=== PATIENT | female | born 1985 | race Caucasian/White ===

== ENCOUNTER 2017-12-12 13:46 | Outpatient (CLI) | payer BC ==
[~2017-12-12] VITALS: Ht 172.7 cm; Wt 73.6 kg
[~2017-12-12 13:46] MED LIST: MOTRIN 600600 MG/TAB PO; PERCOCET 325 MG1 TA2 PO; PRENATAL VITAMI1 TAB PO; ZANTAC 150MG T150 MG PO
[2017-12-12 13:51] VITALS: BP 110/72; PULSE 84; TEMP 97.9
== END 2017-12-12 14:35 | disposition home or self-care (01) ==
LOC: LDR 13:46 → LDRO 13:46
DX: Z34.83 Encounter for supervision of other normal pregnancy, third trimester (principal); Z3A.38 38 weeks gestation of pregnancy
CPT/HCPCS: OP

== ENCOUNTER 2017-12-20 08:30 | Inpatient (IN) | payer BC ==
[2017-12-20] VITALS (20 sets, daily range): BP systolic 84–122; BP diastolic 50–70; PULSE 70–103; TEMP 97.2–97.7
[~2017-12-20] VITALS: Ht 172.7 cm; Wt 75.0 kg
[2017-12-20] MEDS ORDERED: ZANTAC 150MG T150 MG PO (08:47)
[2017-12-20 09:41] LABS: BASO % 0.3 % (0.0-2.0); EOS # 0.1 (0.0-0.7); EOS % 0.4 % (0-4.0); GRAN # 11.5 (1.4-6.5); GRAN % 82.8 % (42.2-75.2); HEMATOCRIT 34.8 % (37.0-47.0); HEMOGLOBIN 11.7 g/dl (12.5-16.0); LYMPH # 1.1 (1.2-3.4); LYMPH % 8.3 % (20.0-51.0); MEAN CELL VOLUME 89 fl (80.0-100.0); MEAN CORPUSCULAR HEMOGLOBIN 30 pg (27.0-31.0); MEAN CORPUSCULAR HGB CONC 34 g/dl (33.0-37.0); MEAN PLATELET VOLUME 11.1 fl (7.4-10.4); MONO # 1.1 (0.1-0.6); MONO % 7.6 % (1.7-9.3); PLATELET COUNT 155 K/mm3 (130-400); RED BLOOD COUNT 3.93 M/mm3 (4.10-5.30); REDCELL DISTRIBUTION WIDTH-CV 14.3 % (11.5-14.5)
[2017-12-20] MEDS ORDERED: MOTRIN 800800 MG/TAB PO (11:38)
[2017-12-20] MEDS ORDERED: PERCOCET 325 MG1 TA2 PO (11:38)
[2017-12-21] VITALS: BP 108/72; PULSE 89; TEMP 97.8
[2017-12-21 05:10] VITALS: BP 94/62; PULSE 86; TEMP 98.5
[2017-12-21 09:43] VITALS: BP 94/49; PULSE 94; TEMP 97.6
[2017-12-21 16:33] VITALS: BP 98/61; PULSE 72; TEMP 98.2
[2017-12-21 20:00] VITALS: BP 130/68; PULSE 70; TEMP 98
[2017-12-22 08:35] VITALS: BP 100/65; PULSE 72; TEMP 98.1
== END 2017-12-22 13:40 | disposition home or self-care (01) | DRG 775 ==
LOC: LDRO 08:30 → LDR 09:00 → OB 16:10
PROVIDERS: Obstetrics & Gynecology
PROC: 10E0XZZ Delivery of Products of Conception, External Approach (ICD-10-PCS; principal; 2017-12-20)
PROC: 0KQM0ZZ Repair Perineum Muscle, Open Approach (ICD-10-PCS; 2017-12-20)
DX: O99.013 Anemia complicating pregnancy, third trimester (principal); K21.9 Gastro-esophageal reflux disease without esophagitis; O99.820 Streptococcus B carrier state complicating pregnancy; O99.613 Diseases of the digestive system complicating pregnancy, third trimester; O70.1 Second degree perineal laceration during delivery; Z37.0 Single live birth; Z3A.39 39 weeks gestation of pregnancy
CPT/HCPCS: J2540; J2590; J7120

== ENCOUNTER 2021-05-22 13:53 | Emergency (ER) | payer SELFPAY ==
[~2021-05-22] VITALS: Ht 172.7 cm; Wt 65.9 kg
[~2021-05-22 13:53] MED LIST changes: +MOTRIN 800800 MG/TAB PO
[2021-05-22 14:27] LABS: COLLECTION METHOD CLEAN CATCH
[2021-05-22 14:43] LABS: MUCOUS Present (NOT PRESENT); PH 5 (5-8); URINE APPEARANCE Hazy (CLEAR/HAZY); URINE BACTERIA None Seen (NONE SEEN); URINE BILIRUBIN Negative (NEGATIVE); URINE BLOOD 1+ (NEGATIVE); URINE COLOR Yellow (YELLOW); URINE GLUCOSE Negative (NEGATIVE); URINE KETONE 2+ (NEGATIVE); URINE LEUKOCYTE ESTERASE Negative (NEGATIVE); URINE NITRATE Negative (NEGATIVE); URINE PROTEIN(semi-quant) 1+ (NEGATIVE); URINE RBC 0-2 /hpf (0-2); URINE UROBILINOGEN Negative (NEGATIVE)
[2021-05-22 15:30] LABS: HEMATOCRIT 40.6 % (37.0-47.0); HEMOGLOBIN 13.9 g/dl (12.5-16.0); MEAN CELL VOLUME 89 fl (80.0-100.0); MEAN CORPUSCULAR HEMOGLOBIN 30 pg (27-31); MEAN CORPUSCULAR HGB CONC 34 g/dl (33.0-37.0); PLATELET COUNT 200 K/mm3 (130-400); RED BLOOD COUNT 4.58 M/mm3 (4.10-5.30); REDCELL DISTRIBUTION WIDTH-CV 13.4 % (11.5-14.5)
[2021-05-22 15:42] LABS: ALBUMIN 3.2 gm/dL (3.5-5.0); CALCIUM 8.3 mg/dL (8.4-10.2); CREATININE, serum 0.63 mg/dL (0.57-1.11); POTASSIUM 3.5 mmol/L (3.5-4.5); TOTAL PROTEIN 6.3 gm/dL (6.2-8.1)
[2021-05-22 15:51] LABS: BAND 9 % (0-10); LYMPHOCYTE 5 % (20.0-51.0); NEUTROPHILS 84 % (42.0-75.2); PLATELET ESTIMATE NORMAL (NORMAL)
[2021-05-22 15:58] LABS: BILIRUBIN,TOTAL 0.8 mg/dL (0.2-1.2)
[2021-05-22] MEDS ORDERED: REGLAN 10MG10 MG/TAB PO (17:30)
[2021-05-22 17:59] VITALS: BP 106/66; PULSE 98; TEMP 98.5
== END 2021-05-22 18:06 | disposition home or self-care (01) ==
LOC: COL.ER 13:53
PROVIDERS: Emergency Medicine; Student in an Organized Health Care Education/Training Program
DX: O21.9 Vomiting of pregnancy, unspecified (principal); Z3A.17 17 weeks gestation of pregnancy
CPT/HCPCS: J2765; J7030

== ENCOUNTER 2021-10-22 10:31 | Inpatient (IN) | payer OTHER ==
[~2021-10-22] VITALS: Ht 172.7 cm; Wt 72.7 kg
[~2021-10-22 10:31] MED LIST changes: +REGLAN 10MG10 MG/TAB PO
[2021-10-24] VITALS (27 sets, daily range): BP systolic 91–129; BP diastolic 52–72; PULSE 71–92; TEMP 97.6–98
--- NOTE | 2021-10-24 06:20 | NUR ---
Presents to labor and delivery with spouse. Changed into gown and then on heart monitor. heart rate 140s with accelerations and no decelerations. States has contractions once in awhile. Assessment done, questions offered and answered.
--- NOTE | 2021-10-24 07:30 | NUR ---
Rests in bed, alert. Pitocin 2 mu iv started as ordered and per policy. Pen g 5 million units iv started as ordered and per protocol.
[2021-10-24 07:58] LABS: BASO % 0.4 % (0.0-2.0); EOS # 0.1 K/mm3 (0.0-0.7); GRAN # 5.3 K/mm3 (1.4-6.5); GRAN % 67.9 % (42.2-75.2); HEMOGLOBIN 11.3 g/dl (12.5-16.0); LYMPH # 1.5 K/mm3 (1.2-3.4); LYMPH % 19.1 % (20.0-51.0); MEAN CELL VOLUME 90 fl (80.0-100.0); MEAN CORPUSCULAR HEMOGLOBIN 29 pg (27-31); MEAN CORPUSCULAR HGB CONC 33 g/dl (33.0-37.0); MEAN PLATELET VOLUME 11.5 fl (7.4-10.4); MONO # 0.9 K/mm3 (0.1-0.6); MONO % 11.1 % (1.7-9.3); PLATELET COUNT 216 K/mm3 (130-400); RED BLOOD COUNT 3.85 M/mm3 (4.10-5.30); REDCELL DISTRIBUTION WIDTH-CV 13.8 % (11.5-14.5)
[2021-10-24 08:00] LABS: HEMATOCRIT 34.6 % (37.0-47.0)
--- NOTE | 2021-10-24 08:30 | NUR ---
States feeling contractions. States ready for epidural when ever. Let her know that our anesthesia person is getting another patient an epidural. Will let him know that you are ready.
--- NOTE | 2021-10-24 09:15 | NUR ---
Rest in bed, alert. 0919 Anesthesia here, visits with patient. 0980 Space obtained. 0992 Test dose given by anesthesia Matteo.
--- NOTE | 2021-10-24 09:30 | NUR ---
Lies down after epidural. States feeling better.
--- NOTE | 2021-10-24 10:30 | NUR ---
Rests in bed with peanut ball between legs. Denies any pain or discomfort at this time.
--- NOTE | 2021-10-24 11:13 | NUR ---
Rests in bed, alert. Pen g 2.5 million units iv given as ordered and per prtocol.
--- NOTE | 2021-10-24 11:20 | NUR ---
States feeling pressure. Vag check done, dilated to nine, 100% effaced, minus one. Dr. Whitney informed of this information while she was in with another patient that was pushing.
--- NOTE | 2021-10-24 11:33 | NUR ---
States having more pressure. Vag check done, complete. This was told to Dr. Whitney. Says to turn off the pitocin. Pitocin off. 1143 Dr. Whitney here, preps for delivery. 1146 Pushes with contractions. 1158 Spontaneous delivery of baby boy by Dr. Whitney. 1200 Spontaneous delivery of placenta by Dr. Whitney. Pitocin infusing at 333ccs an hour as ordered and per protocol.
--- NOTE | 2021-10-24 12:15 | NUR ---
Rests in bed, alert. Repair work done by Dr. Whitney.
--- NOTE | 2021-10-24 12:30 | NUR ---
Rests in bed, alert. Holds baby lovingly, spouse at bedside.
--- NOTE | 2021-10-24 12:45 | NUR ---
Rests in bed, alert. Visits on the phone.
--- NOTE | 2021-10-24 13:00 | NUR ---
Rests in bed, alert. Eating lunch.
--- NOTE | 2021-10-24 14:00 | NUR ---
Rests in bed baby. Spouse at bedside.
--- NOTE | 2021-10-24 15:00 | NUR ---
Rests in bed, alert. States unable to move right leg. Let her know that we would try in another half an hour.
--- NOTE | 2021-10-24 16:30 | NUR ---
To the bathroom via wheel chair with this nurse and nurse Sharmaine. States right leg still kind of numb. Assist to the toilet. Voids moderate amount of clear yellow urine with a tinge of light red color. Assist back to the wheel chair with two nurses. To room 219 via wheel chair. Assisted to bed. Let patient know that she needs to call when she needs to get up for the first time.
[2021-10-24] MEDS ORDERED: MOTRIN 800800 MG/TAB PO (20:57)
[2021-10-25 02:30] VITALS: BP 97/49; PULSE 62; TEMP 98.2
[2021-10-25 07:00] VITALS: BP 101/65; PULSE 72; TEMP 98.1
--- NOTE | 2021-10-25 09:06 | NUR ---
Initial visit attempt; Family resting, Medical Front Desk Coordinator left card of congratulations and God's blessings for the of their son along with information regarding the availability of spiritual care at our hospital.
[2021-10-25 13:00] VITALS: BP 113/61; PULSE 81; TEMP 98.7
== END 2021-10-25 16:15 | disposition home or self-care (01) | DRG 807 ==
LOC: OB 10-24 06:11 → LDR 10-24 06:11 → OB 10-24 16:30
PROVIDERS: ADMIT Obstetrics & Gynecology
PROC: 10E0XZZ Delivery of Products of Conception, External Approach (ICD-10-PCS; principal; 2021-10-24)
PROC: 10907ZC Drainage of Amniotic Fluid, Therapeutic from Products of Conception, Via Natural or Artificial Opening (ICD-10-PCS; 2021-10-24)
PROC: 3E033VJ Introduction of Other Hormone into Peripheral Vein, Percutaneous Approach (ICD-10-PCS; 2021-10-24)
PROC: 0HQ9XZZ Repair Perineum Skin, External Approach (ICD-10-PCS; 2021-10-24)
DX: O99.284 Endocrine, nutritional and metabolic diseases complicating childbirth (principal); Z37.0 Single live birth; E03.9 Hypothyroidism, unspecified; O99.824 Streptococcus B carrier state complicating childbirth; O43.193 Other malformation of placenta, third trimester; O70.0 First degree perineal laceration during delivery; Z3A.39 39 weeks gestation of pregnancy
CPT/HCPCS: J2540; J2590; J7120